=== PATIENT | female | born 1945 | race Caucasian/White ===

== ENCOUNTER 2017-09-11 23:53 | Emergency (ER) | payer MEDICARE, BC ==
[2017-09-12 00:09] VITALS: RESP 18; TEMP 98.4
[2017-09-12 00:43] LABS: BASOPHILS % (AUTO) 1 % (0-3); EOSINOPHILS % (AUTO) 4 % (0-9); HEMATOCRIT 32 % (35-47); MEAN CORPUSCULAR HGB CONC 34.5 gm/dl (32.0-36.0); NEUTROPHILS % (AUTO) 59.4 % (37-80)
[2017-09-12 00:46] LABS: MEAN CORPUSCULAR VOLUME 80 fL (81-99)
[2017-09-12 00:51] LABS: CALCIUM 8.4 mg/dl (8.5-10.1); POTASSIUM 4.2 mMol/L (3.5-5.1)
[2017-09-12 01:08] VITALS: BP 128/72; PULSE 58; O2SAT 98
== END 2017-09-12 01:05 | disposition home or self-care (01) | DRG 149 ==
LOC: ED 23:53
DX: R42 Dizziness and giddiness (principal); E11.9 Type 2 diabetes mellitus without complications; Z79.84 Long term (current) use of oral hypoglycemic drugs
CPT/HCPCS: 36415; 80048; 85025; 99282

== ENCOUNTER 2017-10-20 14:08 | Outpatient (CLI) | payer MEDICARE, BC ==
[2017-09-12 01:08] VITALS: O2SAT 98
== END 2017-10-20 14:09 | disposition home or self-care (01) | DRG 554 ==
LOC: CONVCARE 14:08
PROVIDERS: ATTEND Orthopaedic Surgery
DX: M19.011 Primary osteoarthritis, right shoulder (principal)
CPT/HCPCS: 73030

== ENCOUNTER 2019-05-22 09:39 | Day surgery (SDC) | payer BC ==
[2019-05-22] MEDS ORDERED: ACETAZOLAMIDE 250 MG PO ONE (10:04)
[2019-05-22] MEDS: PHENYLEPHRINE HCL 10% OPHTHAL SOL ONE ×2 (10:14→10:27)
[2019-05-22] MEDS: TETRACAINE HCL 0.5 % 1 DROP SOL ONE ×3 (10:14→11:22)
[2019-05-22] MEDS: CYCLOPENTOLATE 1% SOL ONE ×2 (10:15→10:26)
[2019-05-22] MEDS: KETOROLAC 0.5% OPTH 60 DROP SOL ONE ×2 (10:15→10:27)
[2019-05-22] MEDS ORDERED: MIDAZOLAM 2 MG/2 ML SOL ONE (11:00)
[2019-05-22] MEDS ORDERED: FENTANYL 100MCG/2ML SOL ONE (11:00)
[2019-05-22] MEDS ORDERED: POVIDONE IODINE 5% SOL ONE (11:13)
[2019-05-22] MEDS ORDERED: LIDOCAINE HCL 1% MPF 30 SOL ONE (11:13)
[2019-05-22] MEDS ORDERED: BSS 500 ML 500 ML IR ONE (11:13)
[2019-05-22] MEDS ORDERED: IMPRIMIS ONE (11:14)
[2019-05-22 11:46] VITALS: BP 136/72; PULSE 59; RESP 20; TEMP 96.6; O2SAT 94
== END 2019-05-22 12:06 | disposition home or self-care (01) | DRG 125 ==
LOC: SURG 09:39
PROVIDERS: ATTEND Ophthalmology
DX: H25.89 Other age-related cataract (principal); E11.9 Type 2 diabetes mellitus without complications
CPT/HCPCS: J2250; J3010; A9270-GY; J2001

== ENCOUNTER 2019-06-26 06:44 | Day surgery (SDC) | payer BC ==
[2019-06-26] MEDS ORDERED: ACETAZOLAMIDE 250 MG PO ONE (06:48)
[2019-06-26] MEDS: PHENYLEPHRINE HCL 10% OPHTHAL SOL ONE ×2 (07:19→07:31)
[2019-06-26] MEDS: TETRACAINE HCL 0.5 % 1 DROP SOL ONE ×3 (07:19→08:17)
[2019-06-26] MEDS: CYCLOPENTOLATE 1% SOL ONE ×2 (07:20→07:32)
[2019-06-26] MEDS: KETOROLAC 0.5% OPTH 60 DROP SOL ONE ×2 (07:20→07:32)
[2019-06-26] MEDS ORDERED: FENTANYL 100MCG/2ML SOL ONE (07:59)
[2019-06-26] MEDS ORDERED: MIDAZOLAM 2 MG/2 ML SOL ONE (07:59)
[2019-06-26] MEDS ORDERED: IMPRIMIS ONE (08:12)
[2019-06-26] MEDS ORDERED: BSS 500 ML 500 ML IR ONE (08:13)
[2019-06-26] MEDS ORDERED: LIDOCAINE HCL 1% MPF 30 SOL ONE (08:13)
[2019-06-26] MEDS ORDERED: POVIDONE IODINE 5% SOL ONE (08:13)
[2019-06-26 08:47] VITALS: BP 149/81; PULSE 59; RESP 20; TEMP 97.6; O2SAT 97
== END 2019-06-26 08:59 | disposition home or self-care (01) | DRG 125 ==
LOC: SURG 06:44
PROVIDERS: ATTEND Ophthalmology
DX: H25.89 Other age-related cataract (principal); E11.9 Type 2 diabetes mellitus without complications
CPT/HCPCS: 82962; J2250; J3010; A9270-GY; J2001